=== PATIENT | female | born 1955 | race American Indian/Alaskan Native ===

== ENCOUNTER 2024-03-11 16:28 | Emergency (ER) | payer OTHER ==
[~2024-03-11] VITALS: Ht 175.3 cm; Wt 93.0 kg
[2024-03-11 16:43] VITALS: BP 120/71; O2SAT 100
[2024-03-11] MEDS ORDERED: LIPITOR20 MG (16:44)
[2024-03-11] MEDS ORDERED: ARICEPT5 MG (16:44)
[2024-03-11] MEDS ORDERED: SYNTHROID175 MCG (16:44)
[2024-03-11] MEDS ORDERED: FAMOtidine 10 MG/ML (4ML VIAL) IV PUSH STA (19:12)
[2024-03-11] MEDS ORDERED: 0.9 % SODIUM CHLORIDE 500 ML IV STA (19:12)
[2024-03-11] MEDS ORDERED: EPINEPHRINE HCL/PF 1 MG/ML AMPUL SUBCUTANEO STA (19:13)
[2024-03-11] MEDS ORDERED: FAMOTIDINE/PF 20 MG/2 ML VIAL ONE (19:18)
[2024-03-11] MEDS ORDERED: EPINEPHRINE HCL/PF 1 MG/ML AMPUL ONE (19:18)
[2024-03-11 20:01] LABS: HEMATOCRIT 46.5 % (36.0-45.00); HEMOGLOBIN 15.7 g/dL (12.0-15.00); MEAN CELL VOLUME 90.5 fL (80.00-100.00); MEAN CORPUSCULAR HEMOGLOBIN 30.5 pg (27.00-32.0); MEAN CORPUSCULAR HGB CONC 33.7 g/dl (32.0-36.0); PLATELET COUNT 284 K/uL (150-450); RED BLOOD COUNT 5.14 M/uL (4.00-6.00); RED CELL DISTRIBUTION WIDTH 12.6 % (11.5-14.5)
[2024-03-11 20:18] LABS: CALCIUM 9.2 mg/dL (8.5-10.1); CREATININE SERUM 1.02 mg/dL (0.55-1.02); GFR 54.22; POTASSIUM 3.83 mEq/L (3.5-5.1)
== END 2024-03-11 21:33 | disposition home or self-care (01) ==
LOC: ER 16:28 → EDBD 16:28 → ER 17:21
DX: L50.0 Allergic urticaria (principal)